=== PATIENT | male | born 1960 | race Caucasian/White ===

== ENCOUNTER 2017-09-12 19:46 | Inpatient (IN) | payer OTHER ==
[2017-09-12 20:07] LABS: ADD MAN DIFF? NO
[2017-09-12 20:10] LABS: BASO # 0.1 x10^3/uL (0.0-0.2); BASO % 0 % (0-3); EOS # 0.1 x10^3/uL (0.0-0.7); EOS % 0 % (0-3); HEMATOCRIT 44.9 % (39.0-53.0); HEMOGLOBIN 15.2 g/dL (13.0-17.5); LYMPH # 2.3 x10^3/uL (1.0-4.8); LYMPH % 18 % (24-48); MEAN CORPUSCULAR HEMOGLOBIN 33 pg (25-35); MEAN CORPUSCULAR HGB CONC 34 g/dL (31-37); MEAN CORPUSCULAR VOLUME 98 fL (79-100); MONO # 1.2 x10^3/uL (0.0-1.1); MONO % 9 % (0-9); NEUT # 9.4 x10^3uL (1.8-7.7); NEUT % 72 % (31-73); PLATELET COUNT 164 x10^3/uL (140-400); RED BLOOD COUNT 4.57 x10^6/uL (4.30-5.70); RED CELL DISTRIBUTION WIDTH 13.4 % (11.5-14.5); WHITE BLOOD COUNT 13.1 x10^3/uL (4.0-11.0)
[2017-09-12] MEDS: IPRATRPIUM/ALBUTEROL 0.5/2.5MG 3 ML NEBU. NEB (20:18)
[2017-09-12] MEDS: ALBUTEROL SULFATE 2.5 MG/3 ML NEBU. NEB ×3 (20:18→23:10)
[2017-09-12 20:26] LABS: ANION GAP 12 (6-14); BLOOD UREA NITROGEN 13 mg/dL (8-26); CALCIUM 8.4 mg/dL (8.5-10.1); CARBON DIOXIDE 27 mmol/L (21-32); CHLORIDE 102 mmol/L (98-107); CREATININE 0.9 mg/dL (0.7-1.3); GFR 87.6; GLUCOSE 137 mg/dL (70-99); POTASSIUM 4.6 mmol/L (3.5-5.1); SODIUM 141 mmol/L (136-145)
[2017-09-12 20:28] LABS: ALBUMIN 3.7 g/dL (3.4-5.0); ALK PHOS 74 U/L (46-116); ALT (SGPT) 26 U/L (16-63); AST (SGOT) 25 U/L (15-37); DIRECT BILIRUBIN 0.1 mg/dL (0.0-0.2); LIPASE 120 U/L (73-393); TOTAL BILIRUBIN 0.4 mg/dL (0.2-1.0); TOTAL PROTEIN 6.8 g/dL (6.4-8.2)
[2017-09-12 20:31] LABS: TROPONINI < 0.017 ng/mL (0.000-0.055)
[2017-09-12 20:34] LABS: NT-PRO BNP 69 pg/mL (0-124)
[2017-09-12] MEDS: IV NORMAL SALINE 500ML BAG 500 ML IV (20:34)
[2017-09-12] MEDS: cefTRIAXone IV Push 1 GM VIAL. IVP (20:35)
[2017-09-12] MEDS: AZITHRMYCN 500MG IVPB FOR OMNI 250 ML IV (20:36)
[2017-09-12] MEDS: IV NORMAL SALINE 1000ML BAG 1,000 ML IV ×2 (20:39→21:44)
[2017-09-12 20:40] LABS: BASE EXCESS COOX 1 mmol/L (-3-3); HCO3 COOX 25 mmol/L (21-28); METHEMOGLOBIN 0.4 % (0.0-1.9); OXYHEMOGLOBIN 91.6 %; PCO2 COOX 40 mmHg (35-46); PH COOX 7.42 (7.35-7.45); PO2 COOX 73 mmHg (75-108); SAT O2 COOX 95 % (92-99); TOTAL HEMOGLOBIN 14.8 g/dL
[2017-09-12] MEDS ORDERED: MORPHINE SULFATE 2 MG/ML DISP.SYRIN. IV (20:45)
[2017-09-12] MEDS ORDERED: ONDANSETRON PF 4 MG/2 ML VIAL. IV (20:45)
[2017-09-12] MEDS: OSELTAMIVIR 75 MG CAPSULE PO (20:50)
[2017-09-12 20:56] LABS: FIO2 COOX 30
[2017-09-12 21:15] LABS: INFLUENZA A PATIENT NEGATIVE (NEGATIVE); INFLUENZA B PATIENT NEGATIVE (NEGATIVE); OBC FLU VALID
[2017-09-12] MEDS: VANCOMYCIN 1.5 GM in IV DEXTROSE 5 %-0.2 % NACL 500 ML IV (21:37)
[2017-09-13] MEDS: VANCOMYCIN PER PHARMACY MC (01:38)
[2017-09-13 02:26] LABS: BASO % 0 % (0-3); EOS % 0 % (0-3); LYMPH # 0.4 x10^3/uL (1.0-4.8); LYMPH % 4 % (24-48); MEAN CORPUSCULAR HEMOGLOBIN 33 pg (25-35); MEAN CORPUSCULAR HGB CONC 34 g/dL (31-37); MEAN CORPUSCULAR VOLUME 99 fL (79-100); MONO # 0.3 x10^3/uL (0.0-1.1); MONO % 4 % (0-9); NEUT # 8.8 x10^3uL (1.8-7.7); NEUT % 93 % (31-73); PLATELET COUNT 135 x10^3/uL (140-400); RED BLOOD COUNT 3.96 x10^6/uL (4.30-5.70); RED CELL DISTRIBUTION WIDTH 13.5 % (11.5-14.5); WHITE BLOOD COUNT 9.5 x10^3/uL (4.0-11.0)
[2017-09-13 02:29] LABS: ALBUMIN 2.8 g/dL (3.4-5.0); ALBUMIN/GLOBULIN RATIO 0.8 (1.0-1.7); ALK PHOS 63 U/L (46-116); ALT (SGPT) 34 U/L (16-63); ANION GAP 11 (6-14); AST (SGOT) 36 U/L (15-37); BLOOD UREA NITROGEN 13 mg/dL (8-26); BUN/CREATININE RATIO 14 (6-20); CALCIUM 7.7 mg/dL (8.5-10.1); CARBON DIOXIDE 23 mmol/L (21-32); CHLORIDE 105 mmol/L (98-107); CREATININE 0.9 mg/dL (0.7-1.3); GFR 87.6; GLUCOSE 164 mg/dL (70-99); POTASSIUM 4.1 mmol/L (3.5-5.1); SODIUM 139 mmol/L (136-145); TOTAL BILIRUBIN 0.3 mg/dL (0.2-1.0); TOTAL PROTEIN 6.4 g/dL (6.4-8.2)
[2017-09-13 02:33] LABS: LACTIC ACID 1.6 mmol/L (0.4-2.0)
[2017-09-13 02:33] LABS: ADD MAN DIFF? YES
[2017-09-13 02:38] LABS: TROPONINI < 0.017 ng/mL (0.000-0.055)
[2017-09-13] MEDS ORDERED: PNEUMOCOCCAL VAX SCREEN BY RX. MC (02:45)
[2017-09-13] MEDS ORDERED: INFLUENZA VAX SCREEN BY RX. MC (02:45)
[2017-09-13 03:36] LABS: % BANDS 21 % (0-9); % LYMPHS 2 % (24-48); % MONOS 2 % (0-10); % SEGS 75 % (35-66)
[2017-09-13 04:25] LABS: PLT ESTIMATE DECREASED (ADEQUATE)
[2017-09-13] MEDS: IV NORMAL SALINE 1000ML BAG 1,000 ML IV ×5 (05:09→23:39)
[2017-09-13 09:08] LABS: TROPONINI < 0.017 ng/mL (0.000-0.055)
[2017-09-13] MEDS: VANCOMYCIN 1 GM in IV 1/2 NORMAL SALINE 250 ML IV ×2 (10:31→21:19)
[2017-09-13] MEDS: PNEUMOC CONJ VACC 23-VALENT 0.5 ML VIAL. VAX IM (10:39)
[2017-09-13] MEDS: FLU VACC QS2017-18 (36MOS+)/PF 0.5 ML SYRINGE. VAX IM (10:41)
[2017-09-13] MEDS: ENOXAPARIN 40 MG/0.4 ML SYRINGE. SQ (13:27)
[2017-09-13] MEDS ORDERED: ENOXAPARIN 40 MG/0.4 ML SYRINGE. SQ (14:30)
[2017-09-13] MEDS: IPRATRPIUM/ALBUTEROL 0.5/2.5MG 3 ML NEBU. NEB (19:46)
[2017-09-13] MEDS: LACTOBACILLUS RHAMNOSUS GG 1 CAPSULE. PO (21:11)
[2017-09-13] MEDS: cefTRIAXone IV Push 1 GM VIAL. IVP (21:37)
[2017-09-13 23:13] LABS: MRSA BY PCR Negative (Negative)
[2017-09-14] MEDS: IV NORMAL SALINE 1000ML BAG 1,000 ML IV ×2 (05:32→22:00)
[2017-09-14] MEDS: IPRATRPIUM/ALBUTEROL 0.5/2.5MG 3 ML NEBU. NEB ×4 (07:24→20:23)
[2017-09-14] MEDS: LACTOBACILLUS RHAMNOSUS GG 1 CAPSULE. PO ×2 (08:10→21:12)
[2017-09-14 10:08] LABS: GFR 117.1
[2017-09-14 10:08] LABS: CREATININE 0.7 mg/dL (0.7-1.3)
[2017-09-14 10:14] LABS: VANC TR 9.3 mcg/mL (10.0-20.0)
[2017-09-14] MEDS: VANCOMYCIN PER PHARMACY MC (10:55)
[2017-09-14] MEDS: VANCOMYCIN 1 GM in IV 1/2 NORMAL SALINE 250 ML IV (11:02)
[2017-09-14] MEDS: ENOXAPARIN 40 MG/0.4 ML SYRINGE. SQ (14:01)
[2017-09-14] MEDS: methylPREDNISolone SOD SUCC PF 40 MG/ML VIAL. IV ×2 (14:02→21:16)
[2017-09-14] MEDS ORDERED: VANCOMYCIN 750 MG in IV DEXTROSE 5 %-0.2 % NACL 250 ML IV (19:00)
[2017-09-14] MEDS ORDERED: VANCOMYCIN 750 MG in IV DEXTROSE 5% 250 ML IV (19:00)
[2017-09-14] MEDS: cefTRIAXone IV Push 1 GM VIAL. IVP (21:11)
[2017-09-15 04:32] LABS: ADD MAN DIFF? NO
[2017-09-15] MEDS: IV NORMAL SALINE 1000ML BAG 1,000 ML IV ×5 (04:40→20:14)
[2017-09-15 04:58] LABS: BASO % 0 % (0-3); EOS % 0 % (0-3); HEMATOCRIT 39.2 % (39.0-53.0); HEMOGLOBIN 12.8 g/dL (13.0-17.5); LYMPH # 0.6 x10^3/uL (1.0-4.8); LYMPH % 11 % (24-48); MEAN CORPUSCULAR HEMOGLOBIN 32 pg (25-35); MEAN CORPUSCULAR HGB CONC 33 g/dL (31-37); MEAN CORPUSCULAR VOLUME 99 fL (79-100); MONO # 0.3 x10^3/uL (0.0-1.1); MONO % 5 % (0-9); NEUT # 4.6 x10^3uL (1.8-7.7); NEUT % 84 % (31-73); PLATELET COUNT 133 x10^3/uL (140-400); RED BLOOD COUNT 3.96 x10^6/uL (4.30-5.70); RED CELL DISTRIBUTION WIDTH 13.7 % (11.5-14.5); WHITE BLOOD COUNT 5.5 x10^3/uL (4.0-11.0)
[2017-09-15 05:03] LABS: ANION GAP 8 (6-14); BLOOD UREA NITROGEN 12 mg/dL (8-26); CALCIUM 8.2 mg/dL (8.5-10.1); CARBON DIOXIDE 28 mmol/L (21-32); CHLORIDE 107 mmol/L (98-107); CREATININE 0.7 mg/dL (0.7-1.3); GFR 117.1; GLUCOSE 146 mg/dL (70-99); POTASSIUM 4.3 mmol/L (3.5-5.1); SODIUM 143 mmol/L (136-145)
[2017-09-15] MEDS: IPRATRPIUM/ALBUTEROL 0.5/2.5MG 3 ML NEBU. NEB ×4 (07:20→18:20)
[2017-09-15] MEDS: LACTOBACILLUS RHAMNOSUS GG 1 CAPSULE. PO ×2 (08:38→21:29)
[2017-09-15] MEDS: methylPREDNISolone SOD SUCC PF 40 MG/ML VIAL. IV ×2 (08:40→21:29)
[2017-09-15] MEDS: ENOXAPARIN 40 MG/0.4 ML SYRINGE. SQ (14:00)
[2017-09-15] MEDS: cefTRIAXone IV Push 1 GM VIAL. IVP (20:13)
[2017-09-16] MEDS: IV NORMAL SALINE 1000ML BAG 1,000 ML IV ×3 (00:40→07:08)
[2017-09-16] MEDS: IPRATRPIUM/ALBUTEROL 0.5/2.5MG 3 ML NEBU. NEB ×2 (07:03→10:58)
[2017-09-16] MEDS: LACTOBACILLUS RHAMNOSUS GG 1 CAPSULE. PO (08:44)
[2017-09-16] MEDS: methylPREDNISolone SOD SUCC PF 40 MG/ML VIAL. IV (08:46)
[2017-09-16] MEDS: ENOXAPARIN 40 MG/0.4 ML SYRINGE. SQ (13:25)
== END 2017-09-16 15:04 | disposition home or self-care (01) | DRG 871 ==
LOC: 1 WEST ICU 09-13 01:02 → 4 SOUTHWST 09-14 01:07 → ER 19:46 → ED HOLD 20:37 → 4 SOUTHWST 09-13 17:23
PROC: 5A09457 Assistance with Respiratory Ventilation, 24-96 Consecutive Hours, Continuous Positive Airway Pressure (ICD-10-PCS; principal; 2017-09-13)
DX: A41.9 Sepsis, unspecified organism (principal); J96.01 Acute respiratory failure with hypoxia; J12.9 Viral pneumonia, unspecified; J44.0 Chronic obstructive pulmonary disease with (acute) lower respiratory infection; J44.1 Chronic obstructive pulmonary disease with (acute) exacerbation; F17.210 Nicotine dependence, cigarettes, uncomplicated; Z82.5 Family history of asthma and other chronic lower respiratory diseases; Z98.1 Arthrodesis status; Z71.6 Tobacco abuse counseling
CPT/HCPCS: 36415; 36600; 71045; 80048; 80053; 80076; 80202; 82565; 82805; 83605; 83690; 83880; 84484; 85007; 85025; 87641; 87804; 87804-59; 90686; 90732; 93005; 94618; 94640; 94660; 94760; 96365; 96368; 96375; 99285-25; 99406; J0456; J0696; J1650; J2920; J3370; J7030; J7040; J7613; J7620